=== PATIENT | male | born 1940 | race Caucasian/White ===

== ENCOUNTER 2019-02-03 13:13 | Day surgery (SDC) ==
--- NOTE | 2019-01-27 15:20 | EKG Report ---
Test Performed on : 01/27/2019 3:12:31 PM Test Reason : PAT Blood Pressure : / mmHG Vent. Rate : 072 BPM Atrial Rate : 072 BPM P-R Int : 186 ms QRS Dur : 086 ms QT Int : 378 ms P-R-T Axes : 021 003 022 degrees QTc Int : 413 ms Normal sinus rhythm. Normal ECG When compared with ECG of 29-DEC-2015 18:02, No significant change was found Confirmed by Kailyn Payton MD ([id number]) on 01/31/2019 4:09:08 PM
[2019-01-27 15:32] LABS: HEMOGLOBIN 12.4 g/dL (14.0-18.0); MCHC 34.4 g/dL (33-37); MPV 9.2 FL (7.4-10.4); RDW 12.5 % (11.5-14.5); WBC 10.72 X1000 (4.8-10.8)
[2019-01-27 15:57] LABS: CREATININE 1.4 mg/dL (0.7-1.2); POTASSIUM 4.2 mmol/L (3.5-5.1)
[2019-02-03] MEDS ORDERED: KEFZOL 1 GM/D5W 2 GM/100 ML IVPB ONE (13:39)
[2019-02-03] MEDS ORDERED: LR 1,000 ML ONE ×2 (13:39→16:57)
[2019-02-03] MEDS ORDERED: DIPRIVAN 1% ONE (14:33)
[2019-02-03] MEDS ORDERED: ROBINUL ONE (15:04)
[2019-02-03] MEDS ORDERED: FENTANYL ONE ×2 (15:04→15:50)
[2019-02-03] MEDS ORDERED: XYLOCAINE-MPF 2% ONE (15:04)
[2019-02-03] MEDS ORDERED: EPHEDRINE ONE (15:44)
[2019-02-03] MEDS ORDERED: B & O 15A SUPP ONE (15:50)
[2019-02-03] MEDS ORDERED: DITROPAN PO PRN (17:30)
[2019-02-03] MEDS ORDERED: PHENERGAN IV PRN (17:30)
[2019-02-03] MEDS ORDERED: NORCO-10 PO PRN (17:30)
[2019-02-03] MEDS ORDERED: NORCO-7.5 PO PRN (17:30)
[2019-02-03] MEDS ORDERED: BENADRYL LIQUID PO PRN (17:30)
[2019-02-03] MEDS ORDERED: B & O 15A SUPP PR PRN (17:30)
[2019-02-03] MEDS ORDERED: SODIUM CHLORIDE 0.9% INJ PRN (17:30)
[2019-02-03] MEDS ORDERED: NORCO-5 PO PRN (17:30)
[2019-02-03] MEDS: LR 1,000 ML IV SCH (18:47)
[2019-02-03] MEDS ORDERED: ATARAX PO PRN (19:22)
--- NOTE | 2019-02-03 20:33 | OPERATIVE NOTE ---
PROCEDURE DATE: 02/03/2019 PREOPERATIVE DIAGNOSIS: Enlarged prostate with obstructive and irritative voiding symptoms. POSTOPERATIVE DIAGNOSIS: Enlarged prostate with obstructive and irritative voiding symptoms. PROCEDURE PERFORMED: Cystoscopic examination with transurethral resection of the prostate. ANESTHESIA: General via laryngeal mask. FINDINGS: Cystoscopic exam: Urethra - greater than 28-Yi without stricture. Prostate - coapting lateral lobes, elevated bladder neck, length approximately 4 cm. Bladder - normal ureteral orifices bilaterally. Grade 2 trabeculations. No papillary lesions. No diverticula. INDICATIONS FOR PROCEDURE: This 78-year-old male has a long history of obstructive and irritative voiding symptoms. He could not tolerate finasteride and is on Uroxatral. He still has obstructive voiding and would like to try transurethral resection of the prostate to relieve his symptoms. DESCRIPTION OF PROCEDURE: After informed consent was obtained from the patient and him receiving IV antibiotics, he was taken to the main OR cystoscopy room, placed in a supine position. General anesthesia via laryngeal mask was achieved. He was then placed in a low lithotomy position and prepped and draped in the usual sterile fashion for a cystoscopic exam. A 21-Yi cystoscope was passed through the patient's urethra, prostate, and into the bladder with findings noted above. The 21-Yi sheath cystoscope was removed and the 25.4 continuous flow resectoscope sheath was placed. The thick gyrus loop electrode was placed. Both ureteral orifices were visualized as well as the verumontanum. Procedure was started at 6 o'clock position, going to the level of the bladder neck and level of the verumontanum, proceeding in a clockwise direction to the 10 o'clock position. The resection was then started back at the 6 o'clock position, going from the level of the bladder neck and level of the verumontanum, proceeding in a counterclockwise direction to the 2 o'clock position. Tissue from the anterior prostatic urethra between the 2 o'clock and 10 o'clock positions was removed from the level of bladder neck and level of the verumontanum. After the resection was performed, an incision was made at the bladder neck at the 6 o'clock position, going all the way through to periprostatic and perivesical fat. At completion, the channel was wide open. The verumontanum was intact. Both ureteral orifices were intact. The chips were removed from the bladder with the [email or web address] evacuators. Hemostasis was completed with the electrocautery. The resectoscope was removed. The 22-Yi, 3-way Alves catheter was passed through the patient's urethra, prostate, and into the bladder without difficulty. 30 mL of sterile water was placed in Alves's balloon. The Alves was placed to gravity drain. The efflux was very light pink. Continuous bladder irrigation was started and it completely cleared. A 16A B and O suppository was placed. He tolerated the procedure well. Estimated blood loss 100 mL. He was taken to the recovery room in good condition. cc: Braulio De La Cruz MD
[2019-02-03] MEDS: COLACE PO SCH (22:54)
[2019-02-03] MEDS: PEPCID PO SCH (22:54)
[2019-02-03] MEDS: PERIDEX MT SCH (22:54)
[2019-02-03] MEDS: KEFZOL 2 GM/D5W 2 GM/50 ML IVPB IV SCH (22:55)
[2019-02-03] MEDS: LABETALOL IV PRN (23:38)
[2019-02-04] MEDS: KEFZOL 2 GM/D5W 2 GM/50 ML IVPB IV SCH (05:33)
[2019-02-04] MEDS: LR 1,000 ML IV SCH (05:34)
[2019-02-04] MEDS: LABETALOL IV PRN (06:07)
[2019-02-04 07:18] LABS: HEMATOCRIT 35.5 % (42.0-52.0); HEMOGLOBIN 11.8 g/dL (14.0-18.0); MCH 30.1 PG (27-31); MCHC 33.2 g/dL (33-37); MCV 90.6 FL (81-99); MPV 9.4 FL (7.4-10.4); RBC 3.92 XMIL (4.7-6.1); RDW 12.8 % (11.5-14.5); WBC 11.8 X1000 (4.8-10.8)
[2019-02-04 07:31] LABS: POTASSIUM 4.1 mmol/L (3.5-5.1)
[2019-02-04 07:32] LABS: CALCIUM 8.7 mg/dL (8.8-10.2); CREATININE 1.2 mg/dL (0.7-1.2)
[2019-02-04 07:34] VITALS: BP 138/68
[2019-02-04] MEDS ORDERED: ASPIRIN PO SCH (09:00)
[2019-02-04] MEDS ORDERED: PRAVACHOL PO SCH (09:00)
[2019-02-04] MEDS ORDERED: COZAAR PO SCH (09:00)
[2019-02-04] MEDS ORDERED: UROXATRAL PO SCH (09:00)
[2019-02-04] MEDS ORDERED: NORVASC PO SCH (09:00)
[2019-02-04] MEDS ORDERED: CENTRUM SILVER PO SCH (09:00)
[2019-02-04] MEDS: PERIDEX MT SCH (09:50)
[2019-02-04] MEDS: COLACE PO SCH (09:50)
[2019-02-04] MEDS: PEPCID PO SCH (09:51)
== END 2019-02-04 12:41 | disposition home or self-care (01) ==
LOC: PAT 13:13 → OPS 13:13 → 4N 13:13 → OPS 02-04 12:41
PROVIDERS: ATTEND Urology
PROC: UR.TURP (2019-02-03 15:18)